=== PATIENT | male | born 1990 | race Caucasian/White ===

== ENCOUNTER 2016-07-19 13:43 | Emergency (ER) | payer BC ==
[2016-07-19] MEDS ORDERED: ACETAMINOPHEN 325 MG TABLET PO ONE (14:24)
[2016-07-19] MEDS ORDERED: TUSSIONEX PENNKINETIC SUSP 5 ML UDC ONE (14:50)
--- NOTE | 2016-07-19 15:16 | ER PHYSICIAN DOCUMENTATION ---
Physician Documentation [facility] Name:Tobi Allen Age:25 yrs Sex:Male :1990 Arrival Date:07/19/2016 Time:13:43 Bed1 Private MD: Jose Zepeda Disposition: 07/19/16 15:01 Discharged to Home/Self Care. Impression: Pneumonia, Unspecified. - Condition is Good. - Discharge Instructions: Inflammation, Lung - PNEUMONIA (Adult). - Prescriptions for Cheratussin DAC 30- 10-100 mg/5 mL Oral syrup - take 5 milliliter by ORAL route every 4 hours as needed; 100 milliliter. Zithromax Z- Fabian 250 mg Oral Tablet - take 1 tablet by ORAL route as directed for 5 days Day 1 - take two (2) tablets one time. Day 2, 3, 4 , 5 take one (1) tablet once daily.; 6 tablet. - Medical Reconciliation form form. - Follow up: [facility]; When: 1 week; Reason: Recheck today's complaints. - Problem is new. - Symptoms have improved. HPI: 07/19 14:58 This 25 yrs old Male presents to ER via Private Vehicle with complaints of sc Fever, Cough. 14:58 The patient reports fever, not measured (subjective). Onset: The symptom(s)/episode sc began/occurred 4 day(s) ago. Modifying factors: there are no obvious modifying factors. Associated signs and symptoms: Pertinent positives: chills, cough, night sweats, sinus congestion. Severity of symptoms: At their worst the symptoms were mild. The patient has experienced a previous episode, last year, and the symptoms today are exactly the same, pneumonia last year. Historical: - Allergies: No known drug Allergies; - Home Meds: 1. None - PMHx: Asthma; HEART MURMUR; - PSHx: Tonsillectomy; - Tetanus: > 10 years. - Ebola Screening: : Patient denies exposure to infectious person. Patient denies travel to an Ebola-affected area in the 21 days before illness onset. . - Immunization history: Flu Vaccine >1 year. - Social history: Smoking status: Patient uses tobacco products, current every day smoker. Patient uses alcohol marijuana. ROS: 14:59 Eyes: Negative for injury, pain, redness, and discharge. sc ENT: Negative for injury, pain, and discharge. Neck: Negative for injury, pain, and swelling. Cardiovascular: Negative for chest pain, palpitations, and edema. Abdomen/GI: Negative for abdominal pain, nausea, vomiting, diarrhea, and constipation. Back: Negative for injury and pain. MS/Extremity: Negative for injury and deformity. Skin: Negative for injury, rash, and discoloration. 14:59 Neuro: Negative for headache, weakness, numbness, tingling, and seizure. sc 14:59 Constitutional: Positive for body aches, chills, fatigue, fever. 14:59 Respiratory: Positive for cough, Negative for shortness of breath, sputum production, wheezing. Exam: Eyes: Pupils equal round and reactive to light, extra-ocular motions intact. Lids and lashes normal. Conjunctiva and sclera are non-icteric and not injected. Cornea within normal limits. Periorbital areas with no swelling, redness, or edema. ENT: Nares patent. No nasal discharge, no septal abnormalities noted. Tympanic membranes are normal and external auditory canals are clear. Oropharynx with no redness, swelling, or masses, exudates, or evidence of obstruction, uvula midline. Mucous membranes moist. Neck: Trachea midline, no thyromegaly or masses palpated, and no cervical lymphadenopathy. Supple, full range of motion without nuchal rigidity, or vertebral point tenderness. No meningismus. Chest/axilla: Normal chest wall appearance and motion. Nontender with no deformity. No lesions are appreciated. Cardiovascular: Regular rate and rhythm with a normal S1 and S2. No gallops, murmurs, or rubs. Normal PMI, no JVD. No pulse deficits. Abdomen/GI: Soft, non-tender, with normal bowel sounds. No distension or tympany. No guarding or rebound. No evidence of tenderness throughout. Back: No spinal tenderness. No costovertebral tenderness. Full range of motion. 15:00 Skin: Warm, dry with normal turgor. Normal color with no rashes, no lesions, and no sc evidence of cellulitis. 15:00 Constitutional: The patient appears alert, awake, lethargic. 15:00 Respiratory: the patient does not display signs of respiratory distress, Respirations: normal, Breath sounds: rales. Vital Signs: 13:55 BP 158 / 78 (auto/); st 13:57 Pulse Ox 93% ; st 14:02 BP 158 / 78; Pulse 122; Resp 20; Temp 100.8; Pulse Ox 93% on R/A; Weight 136.08 kg; st Height 5 ft. 7 in. (170.18 cm); Pain 7/10; 14:33 BP 131 / 62 (auto/); st 14:37 Pulse 116; Pulse Ox 94% ; st 15:00 BP 122 / 64 (auto/); st 15:02 Pulse 103; Pulse Ox 95% ; st 14:02 Body Mass Index 46.99 (136.08 kg, 170.18 cm) st MDM: 13:50 Patient medically screened. ut 15:00 Differential diagnosis: bronchitis, pneumonia. Data reviewed: vital signs, nurses sc notes, and as a result, I will discharge patient, administer antibiotics. Counseling: I had a detailed discussion with the patient and/or guardian regarding: the historical points, exam findings, and any diagnostic results supporting the discharge/admit diagnosis, radiology results, the need for outpatient follow up, for a recheck. 07/21 07:23 Order name: [id number] EDMS Dispensed Medications: 14:12 Drug: Acetaminophen 975 mg; Route: PO; st 14:40 Drug: Tussionex - HYDROcodone-Homatropine Liquid 5ml 5 ml; Route: PO; st Signatures: Shannon Walls, RN RN Jose Brar MD MD ut
--- NOTE | 2016-07-19 15:16 | ER NURSING DOCUMENTATION ---
Nurse's Notes [facility] Name:Tobi Allen Age:25 yrs Sex:Male :1990 Arrival Date:07/19/2016 Time:13:43 Bed1 Private MD: Diagnosis:Pneumonia, Unspecified Presentation: 07/19 13:58 Presenting complaint: Patient states: pt states he has had a cough, fever,nausea, body st aches and loose stools for four days. Transition of care: Home. 13:58 Acuity: [place] 3 st 13:58 Method Of Arrival: Private Vehicle st Triage Assessment: 14:01 General: Appears uncomfortable, Behavior is cooperative. Pain: Complains of pain in st body aches Pain currently is 7 out of 10 on a pain scale. Pain began 4 days. Neuro: No deficits noted. Cardiovascular: tachy. Respiratory: Airway is patent Respiratory effort is even, unlabored, Respiratory pattern is regular, symmetrical, Breath sounds with crackles in right posterior upper lobe and right posterior middle lobe Reports cough that is productive, green sputum. GI: Reports diarrhea, nausea, vomiting. Derm: Skin is normal. Historical: - Allergies: No known drug Allergies; - Home Meds: 1. None - PMHx: Asthma; HEART MURMUR; - PSHx: Tonsillectomy; - Tetanus: > 10 years. - Ebola Screening: : Patient denies exposure to infectious person. Patient denies travel to an Ebola-affected area in the 21 days before illness onset. . - Immunization history: Flu Vaccine >1 year. - Social history: Smoking status: Patient uses tobacco products, current every day smoker. Patient uses alcohol marijuana. Screenin:03 Infectious Disease Risk None. Abuse screen: Denies threats or abuse. Denies injuries st from another. pt feels safe at home. Nutritional screening: Has had N/V for 3 or more days. Vital Signs: 13:55 BP 158 / 78 (auto/); st 13:57 Pulse Ox 93% ; st 14:02 BP 158 / 78; Pulse 122; Resp 20; Temp 100.8; Pulse Ox 93% on R/A; Weight 136.08 kg; st Height 5 ft. 7 in. (170.18 cm); Pain 7/10; 14:33 BP 131 / 62 (auto/); st 14:37 Pulse 116; Pulse Ox 94% ; st 15:00 BP 122 / 64 (auto/); st 15:02 Pulse 103; Pulse Ox 95% ; st 14:02 Body Mass Index 46.99 (136.08 kg, 170.18 cm) st ED Course: 13:45 Patient arrived in ED. ama 13:50 Jose Wilkes MD is Attending Physician. ct 13:58 Shannon Walls RN is Primary Nurse. st 14:[address] 14:03 Valuables Remains with patient Patient has correct armband on for positive st identification. Bed in low position. Pulse Ox - RN Monitoring Only NIBP On - RN Monitoring Only. 15:01 [facility] is Referral Physician. sc Administered Medications: 14:12 Drug: Acetaminophen 975 mg; Route: PO; st 14:40 Drug: Tussionex - HYDROcodone-Homatropine Liquid 5ml 5 ml; Route: PO; st Outcome: 15:01 Discharge ordered by MD. ct 15:15 Discharged to home ambulatory. st 15:15 Condition: improved 15:15 Discharge instructions given to patient, Instructed on discharge instructions, follow up and referral plans. medication usage, Prescriptions given X 2. 15:16 [address] the ED[address] st 06/04 17:08 Discharge F/U Call: Unable to reach: left voicemail: [email or web address] Signatures: Shannon Walls RN RN Jose Wilkes MD MD sc Averdick, Andrew, Reg Reg Ruth Hatfield [id number]
--- NOTE | 2016-07-21 07:21 | RADIOLOGY REPORT ---
HISTORY: Cough and fever. COMPARISON: None available. FINDINGS: 2 views of the chest obtained. Normal heart size and central pulmonary vessels. Normal mediastinal contour. Right suprahilar and infrahilar pulmonary infiltrates. Mildly prominent pulmonary interstitial beatris ings noted throughout the lungs bilaterally. No pleural effusion. No pneumothorax. Mildly exaggerated thoracic kyphosis. IMPRESSION: Diffuse bilateral interstitial infiltrates with focal areas of consolidation identified within the ri ght upper and right middle lobes. Radiographic appearance is nonspecific. Consider bacterial pneumoni a, atypical pneumonia and high altitude pulmonary edema. Radiographic follow-up to resolution is advised. Final Electronic Signature: This report was electronically signed by Danny Ely MD, FACR on 07/21/2016 7:19 AM. medardo /
== END 2016-07-19 15:16 | disposition home or self-care (01) ==
LOC: ER 13:43
DX: J18.9 Pneumonia, unspecified organism (principal); M79.1 Myalgia; R53.83 Other fatigue; F17.210 Nicotine dependence, cigarettes, uncomplicated
CPT/HCPCS: 71020; 99283